=== PATIENT | male | born 1975 | race Caucasian/White ===

== ENCOUNTER 2020-08-30 23:17 | Emergency (ER) | payer BC ==
[~2020-08-30] VITALS: Ht 182.9 cm; Wt 84.1 kg
[2020-08-31 04:16] LABS: BASO % 0.6 % (0.0-1.0); EOS # 0.1 10^3/uL (0.0-0.5); EOS % 1.6 % (0.0-3.0); HEMATOCRIT 43.5 % (42.0-52.0); HEMOGLOBIN 14.7 g/dl (13.5-17.5); LYMPH # 1.7 10^3/uL (1.5-5.0); LYMPH % 27.7 % (24.0-44.0); MEAN CORPUSCULAR HEMOGLOBIN 29.6 pg (27.0-33.0); MEAN CORPUSCULAR HGB CONC 33.8 g/dl (32.0-36.5); MEAN CORPUSCULAR VOLUME 87.5 fl (80.0-96.0); MONO # 0.4 10^3/uL (0.0-0.8); MONO % 6.6 % (2.0-8.0); NEUTROPHILS # 3.9 10^3/uL (1.5-8.5); NEUTROPHILS % 63.3 % (36.0-66.0); PLATELET COUNT, AUTOMATED 244 10^3/uL (150-450); RED BLOOD COUNT 4.97 10^6/uL (4.30-6.10); WHITE BLOOD COUNT 6.2 10^3/uL (4.0-10.0)
[2020-08-31 04:31] LABS: ALT/SGPT 40 U/L (12-78); BILIRUBIN,DIRECT 0.1 MG/DL (0.0-0.2); BILIRUBIN,TOTAL 0.5 MG/DL (0.2-1.0); BLOOD UREA NITROGEN 22 MG/DL (7-18); CALCIUM LEVEL 9.1 MG/DL (8.5-10.1); CARBON DIOXIDE LEVEL 31 MEQ/L (21-32); CHLORIDE LEVEL 104 MEQ/L (98-107); CREATININE FOR GFR 1.27 MG/DL (0.70-1.30); GLOMERULAR FILTRATION RATE > 60.0 (>60); GLUCOSE, FASTING 96 MG/DL (70-100); MAGNESIUM LEVEL 2.3 MG/DL (1.8-2.4); PHOSPHORUS LEVEL 4.2 MG/DL (2.5-4.9); POTASSIUM SERUM 4.1 MEQ/L (3.5-5.1); SODIUM LEVEL 142 MEQ/L (136-145); TOTAL PROTEIN 7.3 GM/DL (6.4-8.2)
[2020-08-31 07:25] VITALS: BP 135/88
--- NOTE | 2020-08-31 08:05 | ECGEPIP ---
[facility] - ED Test Date: 2020-08-30 Pat Name: HI CASTILLO Department: Room: - Gender: Male Indirect Sales Representative: JERRICA : 1975 Requested By: WILDA NEWBERRY Order Number: [id number] Reading MD: Juan Rose Measurements Intervals [place] Rate: 69 P: 37 WV: 118 QRS: 9 QRSD: 104 T: 7 QT: 416 QTc: 445 Interpretive Statements Normal sinus rhythm Incomplete right bundle branch block NO PRIORS FOR COMPARISON Electronically Signed on 08-31-2020 8:04:37 EDT by Juan Rose
== END 2020-08-31 07:46 | disposition home or self-care (01) ==
LOC: M ED 23:17
DX: G25.3 Myoclonus (principal); T50.995A Adverse effect of other drugs, medicaments and biological substances, initial encounter; Y92.018 Other place in single-family (private) house as the place of occurrence of the external cause